=== PATIENT | male | born 1950 | race Caucasian/White ===

== ENCOUNTER → 2016-11-17 | Outpatient (CLI) | payer MEDICARE ==
[2015-04-06 12:00] VITALS: BP 118/79
[~2016-11-17] MED LIST: ACET500T68 PO; AMLO5TAB2 PO; ASPI-630 PO; ATOR20TA PO; AZAT50TA PO; BUDE10.2 IH; BUDE3CAP2 PO; DICY10CA3 PO; DIGO0.25 PO; DIGO250T PO; FLUO40CA2 PO; FOLI1TAB16 PO; FURO-68 PO; GLIP5TAB10 PO; LISI40TA PO; MESA500C PO; METF500T25 PO; METO50TA2 PO; POTA20TA4 PO; PROAIR HFA8.5 GM IH; SULF500T3 PO; WARF-78 PO; WARF3TAB54 PO; WARF5TAB7 PO
--- NOTE | 2016-11-17 13:32 | CARD ---
APPROVED REPORT EXAM: Two-dimensional and M-mode echocardiogram with Doppler and color Doppler. Other Information Quality : Average Rhythm : Pacemaker INDICATION Cardiomyopathy 2D DIMENSIONS RVDd3.7 (2.9-3.5cm)Left Atrium(2D)5.0 (1.6-4.0cm) IVSd1.3 (0.7-1.1cm)Aortic Root(2D)3.2 (2.0-3.7cm) LVDd5.1 (3.9-5.9cm)LVOT Diameter2.0 (1.8-2.4cm) PWd1.3 (0.7-1.1cm)LVDs3.7 (2.5-4.0cm) FS (%) 17.2 %SV66.5 ml LVEF(%)42.7 (>50%) Aortic Valve AoV Peak Christian.124.3cm/sAoV VTI21.0cm AO Peak GR.6.2mmHgLVOT Peak Christian.67.3cm/s LVOT VTI 14.20cmAO Mean GR.3mmHg ARTEM (VMAX)5.24el4YE P 1/2 Lpnv252kt Mitral Valve MV E Sywohrik09.1cm/sMV E Peak Gr.128mmHg MV DECEL [id number] A Velocity0.0cm/s MV UQA67pbX/A Ratio0.0 MVA (PHT)4.36cm2 TDI E/Lateral E'6.7E/Medial E'10.4 Pulmonary Valve PV Peak Efhbjzwh93.7cm/sPV Peak Grad.2mmHg RVOT VTI13.1cm Tricuspid Valve TR P. Nksqwllq517gu/sRAP JYFVXUMF5xoOt TR Peak Gr.67rqYiHOCC81fiZr LEFT VENTRICLE The left ventricle is normal size. There is borderline to mild concentric left ventricular hypertroph y. Left ventricle systolic function is mildly impaired. The Ejection Fraction is 40-45%. There is manny bal hypokinesis of the left ventricle. Unable to assess diastolic function. There is no ventricular s eptal defect visualized. RIGHT VENTRICLE The right ventricle is normal size. The right ventricular systolic function is normal. There is a pac emaker/ICD lead ssen in the RV/RA. ATRIA The left atrium is moderately dilated. The right atrium size is normal. The interatrial septum is int act with no evidence for an atrial septal defect or patent foramen ovale as noted on 2-D or Doppler i maging. AORTIC VALVE The aortic valve is mildly calcified. The aortic valve is trileaflet. Doppler and Color Flow revealed mild aortic regurgitation. There is no significant aortic valvular stenosis. MITRAL VALVE The mitral valve is normal in structure and function. There is no mitral valve stenosis. Doppler and Color Flow revealed mild to moderate mitral regurgitation. TRICUSPID VALVE The tricuspid valve is normal in structure and function. Doppler and Color Flow revealed mild tricusp id regurgitation. The PA pressure was estimated at 25 mmHg. There is no tricuspid valve stenosis. PULMONIC VALVE The pulmonic valve is not well visualized. Doppler and Color Flow revealed no pulmonic valvular regur gitation. There is no pulmonic valvular stenosis. GREAT VESSELS The aortic root is normal in size. The ascending aorta is normal in size. Normal pulmonary venous soledad w (Doppler). The IVC is normal in size and collapses >50% with inspiration. PERICARDIAL EFFUSION There is no evidence of significant pericardial effusion. Critical Notification Critical Value: No <Conclusion> Left ventricle systolic function is mildly impaired. The Ejection Fraction is 40-45%. The left atrium is moderately dilated. Mild aortic regurgitation. Mild to moderate mitral regurgitation. Mild tricuspid regurgitation. The PA pressure was estimated at 25 mmHg. There is no evidence of significant pericardial effusion.
== END | disposition home or self-care (01) ==
LOC: ECHO 09:33
PROVIDERS: ATTEND Internal Medicine Cardiovascular Disease
DX: I08.3 Combined rheumatic disorders of mitral, aortic and tricuspid valves (principal); Z95.0 Presence of cardiac pacemaker
CPT/HCPCS: 93306

== ENCOUNTER → 2017-03-08 | Day surgery (SDC) | payer MEDICARE ==
[~2017-03-08] MED LIST changes: +IV RINGERS,LACTATED 1000ML 1,000 ML IV ONE; +METF500T9 PO; -METO50TA2 PO; +METO50TA6 PO; +PROPOFOL 20 ML IV ONE
--- NOTE | 2017-03-08 09:26 | PDOC1 ---
HISTORY & PHYSICAL H&P Dilip Rahman [id number] 1950 02/22/2017 02:10 PM 04/11 [employer] [facility], [facility] OUR PATIENTS COME FIRST [address] [place] [id number] Ph. [phone] Patient: Dilip Rahman Date of : 1950 Date: 02/22/2017 2:10 PM Visit Type: Office Visit This 66 year old male presents for Ulcerative Colitis. History of Present Illness: 1. Ulcerative Colitis Patient has been here for evaluation. Has still urgency of bowel evacuation. No other change. Has routine blood work and is normal. Needs colonoscopy as part of surveillance for malignancy. INTAKE COMMENTS: Intake Comments: Nurse Note: the pt is here today for a follow-up for Ulcerative Colitis. 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 11/11/2015 Benign essential hypertension 09/05/2009 Hyperlipidemia 09/05/2009 Takotsubo cardiomyopathy 11/29/2011 Diabetes mellitus 11/29/2011 PAST MEDICAL/SURGICAL HISTORY (Detailed) Disease/disorder Onset Date Management Date Comments colonoscopy with biopsy 07/20/2012 Tonsillectomy Colonoscopy 03/2008 Ulcerative Colitis basal cell cancer exciesd left forehead Cardiac pacemaker 2004 Pacemaker with defibrillator 02/2012 Asthma Benign Hypertension Benign Hypertension Cancer, skin cardiomyopathy 2011 AICD 2011 Diabetes Hyperlipidemia Hyperlipidemia NEC/NOS Hyperlipidemia NEC/NOS hypertension Irregular Heart Rate myocardial infarction with cardiomyopathy. takutsubo syndrome 2011 cardiac cath - no significatn CAD 2011 obesity Other and unspecified hyperlipidemia Paroxysmal atrial fibrillation paroxysmal atrial fibrillation Ulcerative Colitis ulcerative colitis DIAGNOSTICS HISTORY: Test Ordered Interpretation Result completed COLONOSCOPY AND BIOPSY 06/26/2012 please review colonsocopy report and pathology report for results. 07/20/2012 Colonoscopy 06/10/2014 abnormal Imp: Mild erythema of the entire colon consistent with ulcerative colitis in good remission (bx), Diverticulosis, BX: Mild chronic inflammation with focal slight acute cryptits, mild chronic inflammation with focal slight acute cryptitis, mild chronic inflammation. Mild chronic inflammation with fical slight acute cryptitis, mild chronic inflammation. 06/24/2014 Test Ordered Ordering Comments Modifier COLONOSCOPY AND BIOPSY 06/26/2012 Colonoscopy 06/10/2014 Medications (Active): Started Medication Directions Instruction Stopped 10/26/2016 allopurinol 100 mg tablet take 1 tablet by ORAL route every day aspirin 81 mg tablet,delayed release take 1 tablet (81MG) by oral route every day 01/12/2017 atorvastatin 20 mg tablet TAKE 1 TABLET BY MOUTH DAILY 01/12/2017 azathioprine 50 mg tablet take 2 tablet by oral route every day 02/10/2017 Bentyl 10 mg capsule TAKE 1 CAPSULE BY MOUTH THREE TIMES DAILY 01/14/2017 Coumadin 1 mg tablet TAKE 2 TABLETS BY MOUTH DAILY or as directed due to fluctuating doses FLUCTUATING DOSES 12/16/2016 digoxin 250 mcg tablet TAKE 1 TABLET BY MOUTH DAILY 11/15/2016 FLUOXETINE 40MG CAP TAKE 1 CAPSULE BY MOUTH DAILY 09/15/2016 folic acid 1 mg tablet take 1 tablet by oral route every day 12/16/2016 furosemide 40 mg tablet TAKE 1 TABLET BY MOUTH TWICE DAILY 12/16/2016 glipizide 5 mg tablet TAKE 1 TABLET BY MOUTH TWICE DAILY WITH MEALS 12/16/2016 lisinopril 10 mg tablet take 1 tablet by oral route every day new dose as of 06/30/16 01/12/2017 metformin ER 500 mg tablet,extended release 24 hr TAKE 2 TABLETS BY MOUTH DAILY 12/16/2016 metoprolol tartrate 50 mg tablet TAKE 1 AND 1/2 TABLETS BY MOUTH TWICE DAILY. 04/16/2013 One Touch Ultra Test Strips test blood sugars ac TID as directed DX: 250.00 NPI# [id number] 02/10/2017 potassium chloride ER 20 mEq tablet,extended release(part/cryst) TAKE 1 TABLET BY MOUTH DAILY WITH FOOD ProAir HFA 90 mcg/actuation aerosol inhaler inhale 1 puff by inhalation route every 4 - 6 hours as needed 10/15/2016 sulfasalazine 500 mg tablet take 2 Tablet by ORAL route 3 times every day after meals Symbicort 160 mcg-4.5 mcg/actuation HFA aerosol inhaler inhale 2 puff by inhalation route 2 times every day in the morning and evening 11/15/2016 WARFARIN 5MG TAB TAKE DIRECTED. 02/28/2009 Xanax 0.5 mg Tab take 1 tablet daily PRN Allergies: Ingredient Reaction Medication Name Comment PENICILLINS Rash PENICILLINS REVIEW OF SYSTEMS System Neg/Pos Details Constitutional Negative Chills, fever, malaise and weight loss. ENMT Negative Sore throat. Eyes Negative Double vision. Respiratory Negative Dyspnea and wheezing. Cardio Negative Chest pain and irregular heartbeat/palpitations. GI Positive See HPI. GI Negative See HPI. Negative Dysuria and hematuria. Endocrine Negative Cold intolerance and heat intolerance. Psych Negative Anxiety. Integumentary Negative Hives and rash. MS Negative Joint pain. Shemar/Lymph Negative Easy bleeding and easy bruising. Allergic/Immuno Negative Food allergies. VITAL SIGNS Time BP mm/Hg Pulse /min Resp /min Temp F Ht ft Ht in Ht cm Wt lb Wt kg BMI kg/ m2 BSA m2 O2 Sat% 2:05 PM 132/80 94 5.0 7.00 170.18 266.00 120.656 41.66 95 Time Measured by 2:05 PM Mirlande Samano PHYSICAL EXAM: Exam Findings Details Constitutional Normal Well developed. Eyes Normal Conjunctiva - Right: Normal, Left: Normal. Sclera - Right: Normal, Left: Normal. Nasopharynx Normal Lips/teeth/gums - Normal. Neck Exam Normal Inspection - Normal. Thyroid gland - Normal. Respiratory Normal Inspection - Normal. Auscultation - Normal. Cardiovascular Normal Regular rate and rhythm. No murmurs, gallops, or rubs. Vascular Normal Pulses - Carotids: Normal, Femoral: Normal, Dorsalis pedis: Normal. Abdomen Normal Inspection - Normal. Anterior palpation - No guarding. No abdominal tenderness. No hepatic enlargement. No splenic enlargement. No hernia. No ascites. Skin Normal Inspection - Normal. Extremity Normal No edema. Psychiatric * Oriented to time, place, person and situation. Psychiatric Normal Appropriate mood and effect. Assessment/Plan # Detail Type Description 1. Assessment Ulcerative pancolitis without complication (K51.00). Patient Plan schedule colonoscopy at [facility] [place] Plan Orders Further diagnostic evaluations ordered today include(s) Colonoscopy to be performed today. He is to schedule a follow-up visit with Zev Skelton MD upon completion of work-up Electronically signed by: Zev Skelton MD 02/22/2017 03:10 PM Document generated by: Zev Skelton 02/22/2017 03:10 PM Manan Pate MD, Family Practice; Tyrone Tarango MD Internal Medicine; Art Pat MD, Internal Medicine; Karlee Skelton MD Internal Medicine; Zev Skelton MD, Gastroenterology; Uli Bentley MD, Rheumatology, S. Nilson Ojeda, Physical Medicine/Rehab JJose Marie-Danisha' MANAGER [employer] ------ 03/08/17 Patient seen and examined. No change in H&P. ZEV SKELTON MD Mar 08, 2017 09:26
[2017-03-08 10:37] VITALS: BP 135/92
--- NOTE | 2017-03-10 13:51 | PATHOLOGY ---
PATHOLOGY REPORT * * * * * * * * FINAL DIAGNOSIS: A. Colon biopsies, cecum: - Mild active chronic inflammation with focal acute cryptitis. B. Colon biopsies, ascending colon: - Mild chronic inflammation. C. Colon biopsies, transverse colon: - Mild chronic inflammation. D. Colon biopsies, descending colon: - Mild chronic inflammation. E. Colon biopsies, sigmoid colon: - Focal mild active chronic inflammation. F. Colorectal biopsies, rectum: - Focal mild active chronic inflammation with acute cryptitis. COMMENT: Sections of the cecal biopsy show mild active chronic inflammation with focal acute cryptitis. Sections of the sigmoid colon and rectal biopsies show focal mild active chronic inflammation with focal acute cryptitis. The remaining biopsies otherwise appear relatively quiescent. There is no evidence of an active chronic destructive colitis with crypt architectural distortion, crypt abscess, or basal plasmacytosis. There is no dysplasia or evidence of malignancy. (JPM:mgsri; 03/10/2017) REPORT ELECTRONICALLY SIGNED BY: Farshad Joaquin M.D. DATE/TIME: 03/10/2017 13:51 * * * * * * * * GROSS PATHOLOGY: A. Received in formalin labeled "Dilip Peirsol, cecum, BX," are 2 segments of lawler soft tissue measuring 0.6 x 0.2 x 0.2 cm in aggregate dimensions and ranging from 0.1 to 0.5 cm in maximum dimension. The specimen is submitted entirely in cassette A1. B. Received in formalin labeled "Dilip Peirsol, ascending colon BX," are 6 segments of lawler soft tissue measuring 1.5 x 1.1 x 0.3 cm in aggregate dimensions and ranging from 0.4 to 0.6 cm in maximum dimension. The specimen is submitted entirely in cassette B1. C. Received in formalin labeled "Dilip Peirsol, transverse colon BX," are 5 segments of lawler soft tissue measuring 1.5 x 0.6 x 0.3 cm in aggregate dimensions and ranging from 0.3 to 0.6 cm in maximum dimension. The specimen is submitted entirely in cassette C1. D. Received in formalin labeled "Dilip Peirsol, descending colon BX," are 7 segments of lawler soft tissue measuring 1.5 x 1.4 x 0.4 cm in aggregate dimensions and ranging from 0.3 to 0.6 cm in maximum dimension. The specimen is submitted entirely in cassette D1. E. Received in formalin labeled "Dilip Peirsol, sigmoid BX," are 5 segments of lawler soft tissue measuring 2.0 x 1.3 x 0.4 cm in aggregate dimensions and ranging from 0.2 to 0.5 cm in maximum dimension. The specimen is submitted entirely in cassette E1. F. Received in formalin labeled "Dilip Rahman rectum, BX," are 3 segments of lawler soft tissue measuring 1.4 x 1.0 x 0.3 cm in aggregate dimensions and ranging from 0.3 to 0.5 cm in maximum dimension. The specimen is submitted entirely in cassette F1. (TSD; 03/08/2017) INITIAL CPT CODE(S): A; 99755 B; 90888 C; 59213 D; 63976 E; 34727 F; 11180 Professional services [place] [address] Technical services performed by [facility] at [address] [place] [address]. SPECIMEN(S) RECEIVED: A.Cecum biopsy B.Ascending colon biopsy C.Transverse colon biopsy D.Descending colon biopsy E.Sigmoid biopsy F.Rectum biopsy CLINICAL HISTORY: History of ulcerative colitis PATIENT: DILIP RAHMAN /AGE: 5 1950 (Age: 66) PATIENT #: [id number] ALT CASE #: SPECIMEN COLLECTION DATE: 03/08/2017 SPECIMEN RECEIVED DATE: 03/08/2017 [facility] - [address] [place] [address] - PHONE: [phone] * * * END OF REPORT * * *
== END | disposition home or self-care (01) ==
LOC: SURG 09:11
PROVIDERS: ATTEND Internal Medicine Gastroenterology
DX: K51.20 Ulcerative (chronic) proctitis without complications (principal); K63.5 Polyp of colon; K63.89 Other specified diseases of intestine; E11.9 Type 2 diabetes mellitus without complications; I48.0 Paroxysmal atrial fibrillation; G47.33 Obstructive sleep apnea (adult) (pediatric); I10 Essential (primary) hypertension; E78.5 Hyperlipidemia, unspecified; J45.909 Unspecified asthma, uncomplicated; I42.9 Cardiomyopathy, unspecified; I25.2 Old myocardial infarction; E66.9 Obesity, unspecified; Z79.82 Long term (current) use of aspirin; Z79.01 Long term (current) use of anticoagulants; Z85.828 Personal history of other malignant neoplasm of skin; Z98.890 Other specified postprocedural states; Z88.0 Allergy status to penicillin
CPT/HCPCS: 45380; 82962; 88305; J2704

== ENCOUNTER → 2017-11-24 | Outpatient (CLI) | payer MEDICARE ==
[2017-03-08 10:37] VITALS: BP 135/92
[~2017-11-24] MED LIST changes: -IV RINGERS,LACTATED 1000ML 1,000 ML IV ONE; +LISI-130 PO; -LISI40TA PO; -PROPOFOL 20 ML IV ONE; +WARF-31 PO; -WARF5TAB7 PO
--- NOTE | 2017-11-24 11:35 | CARD ---
MR#: [id number] Date of Study: 11/24/2017 Ordering Physician: SHAMIR FERRERA, Referring Physician: SHAMIR FERRERA Tech: HANNAH Bedolla APPROVED REPORT EXAM: Two-dimensional and M-mode echocardiogram with Doppler and color Doppler. Other Information Quality : AverageHR: 68bpm Technically limited study due to body habitus. INDICATION Chronic systolic heart failure RISK FACTORS Hypertension Obesity Hyperlipidemia 2D DIMENSIONS RVDd3.8 (2.9-3.5cm)Left Atrium(2D)5.1 (1.6-4.0cm) IVSd1.4 (0.7-1.1cm)Aortic Root(2D)3.8 (2.0-3.7cm) LVDd5.0 (3.9-5.9cm)LVOT Diameter1.9 (1.8-2.4cm) PWd1.3 (0.7-1.1cm)IVSs2.2 (0.8-1.2cm) LVDs3.2 (2.5-4.0cm)FS (%) 36.9 % PWs1.7 (0.8-1.2cm)SV80.3 ml LVEF(%)66.5 (>50%) M-Mode DIMENSIONS Left Atrium(MM)7.02 (2.5-4.0cm)IVSd1.60 (0.7-1.1cm) Aortic Root3.73 (2.2-3.7cm)LVDd5.57 (4.0-5.6cm) PWd1.44 (0.7-1.1cm)IVSs1.65 cm FS (%) 32 %LVDs3.80 (2.0-3.8cm) PWs1.82 cmLVEF(%)59 (>50%) Aortic Valve AoV Peak Christian.129.9cm/sAoV VTI24.8cm AO Peak GR.6.8mmHgLVOT Peak Christian.87.2cm/s LVOT VTI 17.43cmAO Mean GR.4mmHg ARTEM (VMAX)1.76ws7XGQ (VTI)1.93cm2 AI P 1/2 Iboj5021mw Mitral Valve MV E Kkrvpycb36.2cm/sMV E Peak Gr.98mmHg MV DECEL PRLC808idHD MRO99pf MVA (PHT)4.12cm2 TDI E/Lateral E'7.4E/Medial E'9.6 Pulmonary Valve PV Peak Nkxsszfw75.6cm/sPV Peak Grad.2mmHg Tricuspid Valve TR P. Vyomufcm232sm/sTR Peak Gr.23mmHg LEFT VENTRICLE The left ventricle is normal size. There is mild concentric left ventricular hypertrophy. The left ve ntricular systolic function is normal. The ejection fraction is estimated at 50-55%. There is normal LV segmental wall motion. RIGHT VENTRICLE The right ventricle is normal size. The right ventricular systolic function is normal. There is a pac emaker lead in the right ventricle. ATRIA The left atrium is moderately dilated. The right atrium is mildly dilated. A pacemaker is seen in the right atrium consistent with history. The interatrial septum is intact with no evidence for an atria l septal defect or patent foramen ovale as noted on 2-D or Doppler imaging. AORTIC VALVE The aortic valve is mildly thickened. Doppler and Color Flow revealed mild aortic regurgitation. Ther e is no significant aortic valvular stenosis. There is no aortic valvular vegetation. MITRAL VALVE The mitral valve is thickened but opens well. There is no evidence of mitral valve prolapse. There is no mitral valve stenosis. Doppler and Color-flow revealed mild mitral regurgitation. TRICUSPID VALVE The tricuspid valve leaflets are thickened , but open well. Doppler and Color Flow revealed mild tric uspid regurgitation. There is no tricuspid valve prolapse or vegetation. There is no tricuspid valve stenosis. PULMONIC VALVE The pulmonic valve is not well visualized. Doppler and Color Flow revealed no pulmonic valvular regur gitation. There is no pulmonic valvular stenosis. GREAT VESSELS The aortic root is borderline normal size. The IVC was not visualized. PERICARDIAL EFFUSION There is no pleural effusion. There is no evidence of significant pericardial effusion. Critical Notification Critical Value: No <Conclusion> The left ventricular systolic function is normal. The ejection fraction is estimated at 50-55%. There is a pacemaker lead in the right atrium and right ventricle. The left atrium is moderately dilated. Mild aortic regurgitation. Mild mitral regurgitation. Mmild tricuspid regurgitation. There is no evidence of significant pericardial effusion. Signed by : Shamir Ferrera, Electronically Approved : 11/24/2017 11:34:27
== END | disposition home or self-care (01) ==
LOC: ECHO 09:43
PROVIDERS: ATTEND Internal Medicine Cardiovascular Disease
DX: I08.3 Combined rheumatic disorders of mitral, aortic and tricuspid valves (principal); I50.22 Chronic systolic (congestive) heart failure; I10 Essential (primary) hypertension; E78.5 Hyperlipidemia, unspecified; E66.9 Obesity, unspecified
CPT/HCPCS: 93306

== ENCOUNTER → 2018-03-28 | Day surgery (SDC) | payer MEDICARE ==
[~2018-03-28] VITALS: Ht 177.8 cm; Wt 117.5 kg
[~2018-03-28] MED LIST changes: +ALBU2.5V8 IH; +ALLO100T PO; +ALPR0.5T PO; -AMLO5TAB2 PO; +AMLO5TAB7 PO; +BACITRACIN TOPICAL OINT 14GM TUBE. TP ONE; +BUPIVAC MPF-EPI 0.5%-1:200000 30 ML VIAL. ONE; +DOCU-109 PO; +FURO40TA4 PO; +HYDR-3164 PO; +HYDROcodone/APAP 5/325MG 1 TAB TABLET PO ONE; +HYDROmorphone 2 MG/ML VIAL IV PRN; +IV RINGERS,LACTATED 1000ML 1,000 ML IV SCH; +LIDOCAINE 1% PF 2 ML VIAL. ID PRN; +LIDOCAINE 1% PF 30 ML VIAL. ONE; +LIDOCAINE 1%/EPI 1:100,000 20 ML VIAL. ONE; +LIDOCAINE 2% PF Vial for OR 5 ML VIAL. ONE; +METO-239 PO; +MIDAZOLAM HCL/PF 2 MG/2 ML VIAL. ONE; +MORPHINE SULFATE 2 MG/ML VIAL. IV PRN; +ONDANSETRON PF 4 MG/2 ML VIAL. IV PRN; -PROAIR HFA8.5 GM IH; +PROCHLORPERAZINE 10 MG/2 ML VIAL. IV PRN; +PROPOFOL 20 ML IV ONE; +fentaNYL PF VIAL 100 MCG/2 ML VIAL IV PRN; +fentaNYL PF VIAL 250 MCG/5 ML VIAL ONE
[2018-03-28 09:09] LABS: PROTHROMBIN TIME PATIENT 14.2 SEC (11.7-14.0)
--- NOTE | 2018-03-28 10:14 | PDOC ---
BRIEF OPERATIVE NOTE Date: Mar 28, 2018 Pre-Op Diagnosis subcutaneous mass, left posterior neck Post-Op Diagnosis same Procedure Performed excision Surgeon Darrius Anesthesia Type: General Blood Loss 10cc IV Fluid 300cc Specimens Obtained skin and subcutaneous tissue left posterior neck 4x2x1.5 cm Findings sebaceous cyst Complications none Operative Note # [id number] ALBERT MONTES MD Mar 28, 2018 10:14
--- NOTE | 2018-03-28 10:18 | DISCH ---
DISCHARGE INSTRUCTIONS Condition on Discharge Condition on Discharge: Stable Activity After Discharge Activity Instructions for Disc: Activity as tolerated, Avoid exertion Lifting Instructions after Dis: No heavy lifting Driving Instructions after Dis: Do not drive today Diet after Discharge Diet after Discharge: Cardiac, Diabetic No Calorie Level Wound Incision Care Wound/Incision Care: Ice to area for comfort Other wound/incision instructi: may shower Contacting the DRJose after DC Call your doctor for: If your condition worsens Follow-Up Follow up with: Darrius 04/07 ALBERT MONTES MD Mar 28, 2018 10:18
--- NOTE | 2018-03-28 10:21 | OP ---
DATE OF SURGERY: 03/28/2018 PREOPERATIVE DIAGNOSIS: Subcutaneous mass, left posterior neck. POSTOPERATIVE DIAGNOSIS: Subcutaneous mass, left posterior neck. PROCEDURE: Excision of subcutaneous mass, left posterior neck. SURGEON: Albert Montes MD ANESTHESIA: General. ESTIMATED BLOOD LOSS: 10 mL. INTRAVENOUS FLUIDS: 300 mL. SPECIMEN: Skin and subcutaneous tissue, left posterior neck, a 4 x 2 x 1.5 cm. DESCRIPTION OF PROCEDURE: The patient brought to the operating suite, given a general LMA and placed in the right lateral decubitus position. The posterior skin lesion, which had been marked preoperatively with the patient's assistance, was infiltrated with local anesthetic, incised and the skin and underlying process removed en bloc. Hemostasis with cautery when present. The wound was closed with interrupted sutures of 4-0 and 5-0 nylon. Sterile dressing applied. The patient was awakened from his anesthetic and taken to the recovery room in satisfactory condition. ALBERT MONTES MD DR: KAYLYN/susana JOB#: [id number] / [id number]
[2018-03-28 11:15] VITALS: BP 105/60
--- NOTE | 2018-03-30 16:09 | PATHOLOGY ---
[facility] Accession Number: [id number] . 01 Material submitted: . SKIN AND SUBCUTANEOUS TISSUE LEFT POSTERIOR NECK . 01 Clinical history: . Subcutaneous cyst . 02 Diagnosis: Skin and subcutaneous tissue, "left posterior neck", excision: - Ruptured epidermal inclusion cyst with associated acute and chronic inflammation and foreign body giant cells. (SKM:[facility] 03/30/2018) QTP/03/30/2018 . 02 Electronically signed: . Freddy Reynaga MD, Pathologist NPI- [id number] . 01 Gross description: . The specimen is received in formalin, labeled "Dilip Rahman, skin and subcutaneous tissue left posterior neck". Received is an ellipse of pale lawler, grossly unremarkable skin with attached underlying soft tissue measuring 2.8 x 2.1 x 1.7 cm in greatest dimensions. The surgical margin is inked. Sectioning reveals a unilocular cystic structure measuring 0.5 cm filled with white-lawler friable material. The entire cystic structure is submitted in cassette A1. (CAA; 03/29/2018) QAC/QAC . 02 Pathologist provided ICD-10: L72.0 . 02 CPT . 709922 Specimen Comment: A courtesy copy of this report has been sent to Specimen Comment: [phone], . Specimen Comment: Report sent to / DR PIERCE Specimen Comment: A duplicate report has been generated due to demographic updates. Performed at: 01 [facility] [address], [place] [id number] MD Anibal Ballard MD Phone: [phone] Performed at: 02 [facility] [address] [place], [place] [id number] MD Farshad Joaquin MD Phone: [phone]
== END ==
LOC: SURG 07:48
PROVIDERS: ATTEND Surgery
DX: L72.0 Epidermal cyst (principal)
CPT/HCPCS: 11426; 88304; A7015; J1956; J2001; J2704; J3010; J3490; 36415; 82962; 85610; 85730; J2250

== ENCOUNTER 2018-04-28 06:37 | Outpatient (CLI) | payer MEDICARE ==
[2018-04-28] VITALS (7 sets, daily range): BP systolic 94–108; BP diastolic 54–65
[~2018-04-28] VITALS: Ht 177.8 cm; Wt 108.9 kg
[~2018-04-28 06:37] MED LIST changes: -BACITRACIN TOPICAL OINT 14GM TUBE. TP ONE; -BUPIVAC MPF-EPI 0.5%-1:200000 30 ML VIAL. ONE; -HYDROcodone/APAP 5/325MG 1 TAB TABLET PO ONE; -HYDROmorphone 2 MG/ML VIAL IV PRN; -IV RINGERS,LACTATED 1000ML 1,000 ML IV SCH; -LIDOCAINE 1% PF 2 ML VIAL. ID PRN; -LIDOCAINE 1% PF 30 ML VIAL. ONE; -LIDOCAINE 1%/EPI 1:100,000 20 ML VIAL. ONE; -LIDOCAINE 2% PF Vial for OR 5 ML VIAL. ONE; -MIDAZOLAM HCL/PF 2 MG/2 ML VIAL. ONE; -MORPHINE SULFATE 2 MG/ML VIAL. IV PRN; -ONDANSETRON PF 4 MG/2 ML VIAL. IV PRN; -PROCHLORPERAZINE 10 MG/2 ML VIAL. IV PRN; -PROPOFOL 20 ML IV ONE; +Pantoprazole PO; -fentaNYL PF VIAL 100 MCG/2 ML VIAL IV PRN; -fentaNYL PF VIAL 250 MCG/5 ML VIAL ONE
[2018-04-28] MEDS ORDERED: LISI10TA2 PO (06:59)
[2018-04-28 07:02] LABS: HEMATOCRIT 41.8 % (39.0-53.0); HEMOGLOBIN 14.9 g/dL (13.0-17.5); RED BLOOD COUNT 3.88 x10^6/uL (4.30-5.70); WHITE BLOOD COUNT 4.8 x10^3/uL (4.0-11.0)
[2018-04-28 07:11] LABS: CALCIUM 9.4 mg/dL (8.5-10.1); CREATININE 1.1 mg/dL (0.7-1.3); GFR 66.4; POTASSIUM 3.5 mmol/L (3.5-5.1)
[2018-04-28 07:13] LABS: PROTHROMBIN TIME PATIENT 17.1 SEC (11.7-14.0)
[2018-04-28] MEDS ORDERED: BACITRACIN 50,000 UNIT in IV NORMAL SALINE 250ML 250 ML IRR ONE (08:00)
[2018-04-28] MEDS ORDERED: VANCOMYCIN 1GM IVPB FOR OMNI 250 ML IV ONE (08:00)
[2018-04-28] MEDS ORDERED: MIDAZOLAM HCL/PF 5 MG/5 ML VIAL. ONE (08:07)
[2018-04-28] MEDS ORDERED: fentaNYL PF VIAL 250 MCG/5 ML VIAL ONE (08:07)
[2018-04-28] MEDS ORDERED: LIDOCAINE 2%/EPI 1:100,000 20 ML VIAL. ONE (08:11)
[2018-04-28] MEDS ORDERED: fentaNYL PF VIAL 250 MCG/5 ML VIAL IV ONE (08:30)
[2018-04-28] MEDS ORDERED: MIDAZOLAM HCL/PF 5 MG/5 ML VIAL. IV ONE (08:30)
[2018-04-28] MEDS ORDERED: LIDOCAINE 2%/EPI 1:100,000 20 ML VIAL. IJ ONE (08:30)
--- NOTE | 2018-04-28 09:33 | PDOC ---
MODERATE SEDATION ASSESSMENT RISKS/ALTERNATIVES Risks/Alternatives Risks and alternatives of this type of sedation and procedure discussed with: RISK/ALTERNATIVES: Patient H & P ON CHART H & P H & P on chart and reviewed for co-morbid conditions and appropriate labs. H&P ON CHART: Yes STATUS PREG STATUS ASSESSED: N/A MEDS/ALLERGIES REVIEWED Meds/Allergies Reviewed Medications and Allergies including time and route of recently administered narcotics and sedatives. MEDS/ALLERGIES REVIEWED: Yes ASA RATING ASA RATING: III AIRWAY ASSESSMENT Airway Assessment Airway patency, oral function limitations, presence of caps, crowns, dentures, partials, and ability to extend neck assessed. AIRWAY ASSESSMENT: Yes MALLAMPATI SCORE MALLAMPATI SCORE: II PRE-SEDATION ASSESSMENT PRE-SEDATION ASSESSMENT: Yes SHAMIR RODRÍGUEZ MD Apr 28, 2018 09:33
[2018-04-28] MEDS ORDERED: NO ANTICOAGULANT THERAPY. MC PRN (09:45)
--- NOTE | 2018-04-28 10:05 | CARD ---
MR#: [id number] Date of Study: 04/28/2018 Ordering Physician: SHAMIR FERRERA, Referring Physician: SHAMIR FERRERA, Tech: APPROVED REPORT EXAM Successful [employer] biventricular ICD/SOLAR INSTALLATION FOREMAN-D generator change INDICATIONS Nonischemic cardiomyopathy s/p biventricular ICD/SOLAR INSTALLATION FOREMAN-D implantation in the past presenting with batte ry depletion Sedation Time: 34 Minutes IMPLANTED DEVICES After explaining the risks, benefits and alternative options, informed consent was obtained from cassidy ent. Patient was brought to the cardiac Battery Checker and his left chest and shoulder were prepped and alec ped in the usual fashion. 30 mL of 2% lidocaine was infiltrated into the skin and subcutaneous tissue s for local anesthesia. An incision was made over the previous scar and using blunt dissection and ca utery the pocket was opened, capsule exposed and opened and the previously placed generator removed f rom the pocket. The leads were detached from the generator and reattached to a [employer] biventricula r ICD/SOLAR INSTALLATION FOREMAN-D generator model Iperia 7 HF-T DF4 ProMRI, serial #[id number]. This was placed in the pocket was subsequently closed in 3 layers. The right ventricular lead showed a sensing amplitude of 4.8 mV , impedance of 521 ohms and a threshold of 0.7 V. The left ventricular lead showed a sensing amplitud e of 24.4 mV, impedance of 535 ohms and a threshold of 0.9 V. Patient did not have an atrial lead pro bably secondary to his permanent atrial fibrillation. The previously placed right ventricular pacing lead was capped in the past for this was upgraded to biventricular ICD. Patient tolerated the procedu re well. Hemostasis was achieved. There were no immediate complications. CONCLUSION Successful [employer]ik biventricular ICD/SOLAR INSTALLATION FOREMAN-D generator change for battery depletion Signed by : Shamir Ferrera, Electronically Approved : 04/28/2018 10:03:09
--- NOTE | 2018-04-28 10:47 | NUR ---
discharge instructions reviewed with patient and family. Pt tolerated PO and ambulated without difficulty. Pt discharged to home
== END 2018-04-28 10:49 | disposition home or self-care (01) ==
LOC: CCL 06:37
PROVIDERS: ATTEND Internal Medicine Cardiovascular Disease
DX: Z45.09 Encounter for adjustment and management of other cardiac device (principal); I10 Essential (primary) hypertension; E11.9 Type 2 diabetes mellitus without complications; E78.5 Hyperlipidemia, unspecified; I25.5 Ischemic cardiomyopathy; Z98.890 Other specified postprocedural states; Z88.0 Allergy status to penicillin; Z79.84 Long term (current) use of oral hypoglycemic drugs
CPT/HCPCS: 33263; 36415; 80048; 85027; 85610; C1882; J2250; J3010; J3370; J3490; J7050; 33264; 99152; 99153; J7030

== ENCOUNTER → 2019-01-03 | Outpatient (CLI) | payer MEDICARE ==
[2018-04-28 10:27] VITALS: BP 95/54
[~2019-01-03] MED LIST changes: +AMLO5TAB10 PO; -AMLO5TAB7 PO; +LISI10TA2 PO; +METF500T11 PO; -METF500T9 PO
--- NOTE | 2019-01-05 13:53 | CARD ---
MR#: [id number] Date of Study: 01/03/2019 Ordering Physician: SHAMIR RODRÍGUEZ, Referring Physician: SHAMIR RODRÍGUEZ Tech: Shayna Jaems RDCS APPROVED REPORT EXAM: Two-dimensional and M-mode echocardiogram with Doppler and color Doppler. Other Information Quality : AverageHR: 97bpm Rhythm : NSR INDICATION Congestive Heart Failure 2D DIMENSIONS RVDd3.7 (2.9-3.5cm)Left Atrium(2D)5.7 (1.6-4.0cm) IVSd1.2 (0.7-1.1cm)Aortic Root(2D)3.7 (2.0-3.7cm) LVDd5.7 (3.9-5.9cm)LVOT Diameter2.1 (1.8-2.4cm) PWd1.2 (0.7-1.1cm)LVDs4.5 (2.5-4.0cm) FS (%) 22.0 %SV71.1 ml LVEF(%)43.8 (>50%) M-Mode DIMENSIONS Left Atrium(MM)6.25 (2.5-4.0cm)IVSd1.35 (0.7-1.1cm) Aortic Root4.03 (2.2-3.7cm)PWd1.35 (0.7-1.1cm) IVSs4.45 cm Aortic Valve AoV Peak Christian.117.5cm/sAoV VTI23.4cm AO Peak GR.5.5mmHgLVOT Peak Christian.90.3cm/s AO Mean GR.3mmHgAVA (VMAX)2.78cm2 ARTEM (VTI)2.07si7FK P 1/2 Jdpg379uh Mitral Valve MV E Qgxfnlwx74.9cm/sMV E Peak Gr.99mmHg MV DECEL VIFZ089mrHK A Yncmnbdh40.6cm/s MV E Mean Gr.2mmHgE/A Ratio2.4 Pulmonary Valve PV Peak Mkyokelz54.8cm/s Tricuspid Valve TR P. Ghhdtmic905md/sRAP JRZENYBH5orBf TR Peak Gr.67wlWcUEMK71upWc LEFT VENTRICLE The Left Ventricle is borderline dilated. There is mild concentric left ventricular hypertrophy. The systolic function is mildly impaired. The Ejection Fraction is 40-45%. There is global hypokinesis of the left ventricle with predominance in the anterior wall. Transmitral Doppler flow pattern is Grade II-pseudonormal filling dynamics. RIGHT VENTRICLE The right ventricle is mildly dilated. There is normal right ventricular wall thickness. Systolic fun ction is mildly reduced. ICD lead noted in RV/RA. ATRIA The left atrium is moderately dilated. The right atrium is moderately dilated. The interatrial septum is intact with no evidence for an atrial septal defect or patent foramen ovale as noted on 2-D or Do ppler imaging. AORTIC VALVE The aortic valve is normal in structure and function. The aortic valve is trileaflet. Doppler and Col or Flow revealed moderate aortic regurgitation. There is no significant aortic valvular stenosis. MITRAL VALVE The mitral valve is thickened but opens well. There is no evidence of mitral valve prolapse. There is no mitral valve stenosis. Doppler and Color-flow revealed mild to moderate mitral regurgitation. TRICUSPID VALVE The tricuspid valve is normal in structure and function. Doppler and Color Flow revealed moderate tri cuspid regurgitation. The PA pressure was estimated at 37 mmHg. There is no tricuspid valve prolapse or vegetation. There is no tricuspid valve stenosis. PULMONIC VALVE The pulmonary valve is normal in structure and function. Doppler and Color Flow revealed trace pulmon ic valvular regurgitation. There is no pulmonic valvular stenosis. GREAT VESSELS The aortic root is mildly enlarged. The ascending aorta is Mildly dilated at 3.7 cm The IVC is normal in size and collapses >50% with inspiration. PERICARDIAL EFFUSION There is no evidence of significant pericardial effusion. Critical Notification Critical Value: No <Conclusion> The systolic function is mildly impaired. The Ejection Fraction is 40-45%. There is global hypokinesis of the left ventricle with predominance in the anterior wall. ICD lead noted in RV/RA. Doppler and Color Flow revealed moderate aortic regurgitation. Doppler and Color-flow revealed mild to moderate mitral regurgitation. Doppler and Color Flow revealed moderate tricuspid regurgitation. The PA pressure was estimated at 37 mmHg. The ascending aorta is Mildly dilated at 3.7 cm Signed by : Giovanni Portillo, Electronically Approved : 01/03/2019 10:22:58
== END | disposition home or self-care (01) ==
LOC: ECHO 08:43
PROVIDERS: ATTEND Internal Medicine Cardiovascular Disease
DX: I08.3 Combined rheumatic disorders of mitral, aortic and tricuspid valves (principal); I11.0 Hypertensive heart disease with heart failure; I50.22 Chronic systolic (congestive) heart failure; I77.89 Other specified disorders of arteries and arterioles
CPT/HCPCS: 93306

== ENCOUNTER → 2019-06-04 | Day surgery (SDC) | payer MEDICARE ==
[~2019-06-04] MED LIST changes: -DIGO250T PO; +DIGO250T3 PO; +IV RINGERS,LACTATED 1000ML 1,000 ML IV ONE; +LIDOCAINE 2% PF 5 ML VIAL. ONE; +PROPOFOL 40 ML IV ONE
--- NOTE | 2019-06-04 14:09 | PDOC4 ---
PROCEDURE Procedure Colonoscopy with biopsies Indication: DANYA, dysplasia surveillance. Last colonoscopy 2016. Meds: per anesthesia Findings: RONEY normal. --'Scope advanced to cecum. Some subtle scarring in descending and sigmoid, otherwise normal mucosa. No polyps, tics, masses, etc. Random biopsies from cecum/ascending, transverse, descending, sigmoid and rectum. Maritza. well. 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 REC: Continue meds, diet as before. Await biopsies F/u with me in 2 weeks. Repeat exam in 2 years. JOSE NIEVES MD Jun 04, 2019 14:09
[2019-06-04 14:22] VITALS: BP 101/57
--- NOTE | 2019-06-06 15:07 | PATHOLOGY ---
[facility] Accession Number: [id number] . 01 Material submitted: . PART A: cecum - CECUM/ASCENDING BIOPSIES. Modifiers: ascending PART B: colon - TRANSVERSE COLON BIOPSY. Modifiers: transverse PART C: colon - DESCENDING COLON BIOPSY. Modifiers: descending PART D: colon - SIGMOID COLON BIOPSY. Modifiers: sigmoid PART E: rectum - RECTAL BIOPSIES . 01 Clinical history: . UC . 02 Diagnosis: A. Colonic mucosa, cecum and ascending colon biopsies: - Quiescent colitis. - Single mucosal segment showing focal dysplasia/diminutive tubular adenoma. . B. Colonic mucosa, transverse colon biopsies: - Quiescent colitis. . C. Colonic mucosa, descending colon biopsies: - Quiescent colitis. . D. Colonic mucosa, sigmoid colon biopsies: - Quiescent colitis. . E. Colorectal mucosa, rectal biopsies: - Quiescent colitis. . (JPM:davonte; 06/06/2019) [facility] [place] 06/06/2019 0849 Local . 02 Comment: Sections of the cecum/ascending colon, transverse colon, descending colon, sigmoid colon, and rectal biopsies for the most part appear similar and show segments of histologically normal colonic and rectal mucosa with no evidence of active chronic destructive colitis or dysplasia. There is a single mucosal biopsy segment within the cecum/ascending colon biopsy which shows a small focus of dysplasia/diminutive tubular adenoma. There is no high grade dysplasia or evidence of malignancy. (JPM:davonte; 06/06/2019) . 02 Electronically signed: . Farshad Joaquin MD, Pathologist NPI- [id number] . 01 Gross description: . A. The specimen is received in formalin, labeled "Peirsol, Dilip, cecum and ascending BX" and consists of multiple fragments of lawler tissue measuring 1.5 x 0.6 x 0.3 cm in aggregate which are entirely submitted in A1. . B. The specimen is received in formalin, labeled " Peirsol, Dilip, transverse colon biopsies" and consists of multiple fragments of lawler tissue measuring 1.1 x 0.8 x 0.3 cm in aggregate which are entirely submitted in B1. . C. The specimen is received in formalin, labeled " Peirsol, Dilip, descending colon BX" and consists of multiple fragments of pink-lawler tissue measuring 1.1 x 0.6 x 0.3 cm in aggregate which are entirely submitted in C1. . D. The specimen is received in formalin, labeled " Peirsol, Dilip, sigmoid biopsies" and consists of multiple fragments of pink-lawler tissue measuring 1.2 x 0.9 x 0.3 cm in aggregate which are entirely submitted in D1. . E. The specimen is received in formalin, labeled " Peirsol, Dilip, rectal biopsies" and consists of a few fragments of pink-lawler tissue measuring 1.1 x 0.4 x 0.2 cm in aggregate which are entirely submitted in E1. (SDY; 06/05/2019) SYU/SYU 06/05/2019 1159 Local . 02 Pathologist provided ICD-10: K52.9, K51.90 . 02 CPT . 040020, 728122, 362202, 636483, [id number] Specimen Comment: A courtesy copy of this report has been sent to [phone], [phone] Specimen Comment: [id number] Specimen Comment: Report sent to / DR PIERCE Performed at: 01 [facility] [address], [place], [place] [id number] MD Anibal Ballard MD Phone: [phone] Performed at: 02 [facility] [address] [place], [place] [id number] MD Farshad Joaquin MD Phone: [phone]
== END ==
LOC: ENDOS 12:33
PROVIDERS: ATTEND Internal Medicine Gastroenterology
DX: Z12.11 Encounter for screening for malignant neoplasm of colon (principal); K52.89 Other specified noninfective gastroenteritis and colitis; I11.0 Hypertensive heart disease with heart failure; I50.9 Heart failure, unspecified; E11.9 Type 2 diabetes mellitus without complications; E78.00 Pure hypercholesterolemia, unspecified; I25.2 Old myocardial infarction; F15.90 Other stimulant use, unspecified, uncomplicated; Z88.0 Allergy status to penicillin; Z87.39 Personal history of other diseases of the musculoskeletal system and connective tissue; Z86.010 Personal history of colon polyps; Z85.828 Personal history of other malignant neoplasm of skin; Z79.84 Long term (current) use of oral hypoglycemic drugs; Z95.0 Presence of cardiac pacemaker; Z98.52 Vasectomy status
CPT/HCPCS: 45380; 82962; 88305; J2001; J2704

== ENCOUNTER → 2020-02-05 | Outpatient (CLI) | payer MEDICARE ==
[2019-06-04 14:22] VITALS: BP 101/57
[~2020-02-05] MED LIST changes: +AMLO-186 PO; -AMLO5TAB10 PO; +APIX5TAB PO; -IV RINGERS,LACTATED 1000ML 1,000 ML IV ONE; -LIDOCAINE 2% PF 5 ML VIAL. ONE; +METF-658 PO; -METF500T11 PO; -PROPOFOL 40 ML IV ONE; -WARF-78 PO; +WARF5TAB2 PO
--- NOTE | 2020-02-05 15:33 | CARD ---
MR#: [id number] Date of Study: 02/05/2020 Ordering Physician: SHAMIR FERRERA, Referring Physician: SHAMIR FERRERA, Tech: Brigitte Delgado APPROVED REPORT EXAM: Two-dimensional and M-mode echocardiogram with Doppler and color Doppler. Other Information Quality : Average INDICATION Congestive Heart Failure Surgery/Intervention Pacemaker: RISK FACTORS Hypertension Hyperlipidemia Diabetes 2D DIMENSIONS RVDd3.6 (2.9-3.5cm)Left Atrium(2D)4.6 (1.6-4.0cm) IVSd1.2 (0.7-1.1cm)Aortic Root(2D)4.1 (2.0-3.7cm) LVDd6.1 (3.9-5.9cm)LVOT Diameter2.8 (1.8-2.4cm) PWd1.3 (0.7-1.1cm)LVDs3.7 (2.5-4.0cm) FS (%) 38.7 %SV126.2 ml LVEF(%)68.1 (>50%) Aortic Valve AoV Peak Christian.142.6cm/sAoV VTI25.8cm AO Peak GR.8.1mmHgLVOT Peak Christian.104.6cm/s LVOT VTI 19.83cmAO Mean GR.5mmHg ARTEM (VMAX)3.21rq6ZFZ (VTI)4.79cm2 AI P 1/2 Azxp689hj Mitral Valve MV E Peak Gr.117mmHgMV E Mean Gr.2mmHg Pulmonary Valve PV Peak Isxhzfvj82.9cm/sPV Peak Grad.3mmHg Tricuspid Valve TR P. Qqtzmiet732rq/sTR Peak Gr.30mmHg LEFT VENTRICLE The Left Ventricle is mildly dilated. There is mild to moderate concentric left ventricular hypertrop hy. The left ventricular systolic function is mildly diminished. The Ejection Fraction is 45-50%. Sep caitie motion consistent with pacemaker activation. RIGHT VENTRICLE The right ventricle is borderline dilated. There is normal right ventricular wall thickness. The righ t ventricular systolic function is normal. There is a pacemaker lead in the right ventricle. ATRIA The left atrium is moderately dilated. There is a catheter/pacemaker lead seen in the right atrium. T he right atrium is mildly dilated. The interatrial septum is intact with no evidence for an atrial se ptal defect or patent foramen ovale as noted on 2-D or Doppler imaging. AORTIC VALVE The aortic valve is normal in structure and function. Doppler and Color Flow revealed mild aortic reg urgitation. There is no significant aortic valvular stenosis. Calculated aortic valve area is 2.93 cm 2 with maximum pressure gradient of 9 mmHg and mean pressure gradient of 5 mmHg. MITRAL VALVE The mitral valve is normal in structure and function. There is no evidence of mitral valve prolapse. There is no mitral valve stenosis. Doppler and Color-flow revealed mild mitral regurgitation. TRICUSPID VALVE The tricuspid valve is normal in structure and function. Doppler and Color Flow revealed mild tricusp id regurgitation with an estimated PAP of 28 mmHg. There is no tricuspid valve stenosis. PULMONIC VALVE The pulmonic valve is not well visualized. Doppler and Color Flow revealed trace pulmonic valvular re gurgitation. GREAT VESSELS The aortic root is mildly enlarged measuring 3.99 cm. The ascending aorta is normal in size. The IVC was not visualized. PERICARDIAL EFFUSION There is no evidence of significant pericardial effusion. Critical Notification Critical Value: No <Conclusion> The left ventricular systolic function is mildly diminished. The Ejection Fraction is 45-50%. Pacer lead noted RA/RV. Mild aortic regurgitation. Mild mitral regurgitation. Mild tricuspid regurgitation with an estimated PAP of 28 mmHg. There is no evidence of significant pericardial effusion. Signed by : Shamir Ferrera, Electronically Approved : 02/05/2020 15:32:30
== END ==
LOC: ECHO 09:21
PROVIDERS: ATTEND Internal Medicine Cardiovascular Disease
DX: I08.3 Combined rheumatic disorders of mitral, aortic and tricuspid valves (principal); I50.22 Chronic systolic (congestive) heart failure
CPT/HCPCS: 93306

== ENCOUNTER → 2021-02-11 | Outpatient (CLI) | payer MEDICARE ==
[2019-06-04 14:22] VITALS: BP 101/57
[~2021-02-11] MED LIST changes: +LISI10TA16 PO; -LISI10TA2 PO; +POTA-121 PO; -POTA20TA4 PO
--- NOTE | 2021-02-11 16:47 | CARD ---
MR#: [id number] Date of Study: 02/11/2021 Ordering Physician: SHAMIR RODRÍGUEZ, Referring Physician: SHAMIR RODRÍGUEZ Tech: Chayito Morales MARKO APPROVED REPORT EXAM: Two-dimensional and M-mode echocardiogram with Doppler and color Doppler. Other Information Quality : AverageHR: 83bpm Rhythm : Atrial Fibrillation INDICATION Atrial Fibrillation Surgery/Intervention ICD/Pacemaker: RISK FACTORS Hypertension Hyperlipidemia Diabetes 2D DIMENSIONS RVDd4.4 (2.9-3.5cm)Left Atrium(2D)6.4 (1.6-4.0cm) IVSd1.4 (0.7-1.1cm)Aortic Root(2D)4.2 (2.0-3.7cm) LVDd5.6 (3.9-5.9cm)LVOT Diameter2.6 (1.8-2.4cm) PWd1.4 (0.7-1.1cm)LVDs4.1 (2.5-4.0cm) FS (%) 26.2 %SV77.1 ml LVEF(%)50.7 (>50%) Aortic Valve AoV Peak Christian.136.0cm/sAoV VTI29.9cm AO Peak GR.7.4mmHgLVOT Peak Christian.89.6cm/s AO Mean GR.5mmHgAVA (VMAX)3.47cm2 AI P 1/2 Hvoz989je Mitral Valve MV E Yxibtcoa771.1cm/s Pulmonary Valve PV Peak Mpyqofcm45.8cm/s Tricuspid Valve TR P. Flsmaral727ge/sTR Peak Gr.40mmHg LEFT VENTRICLE The Left Ventricle is borderline dilated. There is mild to moderate concentric left ventricular hyper trophy. Left ventricle systolic function is moderately impaired. The ejection fraction is estimated a t 35%. There is global hypokinesis of the left ventricle. RIGHT VENTRICLE The right ventricle is normal size. There is normal right ventricular wall thickness. The right ventr icular systolic function is normal. ATRIA The left atrium is moderately dilated. The right atrium is moderately dilated. The interatrial septum is intact with no evidence for an atrial septal defect or patent foramen ovale as noted on 2-D or Do ppler imaging. AORTIC VALVE The aortic valve is normal in structure and function. Doppler and Color Flow revealed mild aortic reg urgitation. There is no significant aortic valvular stenosis. MITRAL VALVE The mitral valve is normal in structure and function. There is no evidence of mitral valve prolapse. There is no mitral valve stenosis. Doppler and Color-flow revealed moderate mitral regurgitation. TRICUSPID VALVE The tricuspid valve is normal in structure and function. Doppler and Color Flow revealed mild tricusp id regurgitation. Estimated PAP 55 mmHg. There is no tricuspid valve stenosis. PULMONIC VALVE The pulmonary valve is normal in structure and function. Doppler and Color Flow revealed trace pulmon ic valvular regurgitation. GREAT VESSELS The aortic root is moderately enlarged. The ascending aorta is Moderately dilated. The IVC is dilated and collapses <50% with inspiration. PERICARDIAL EFFUSION There is no evidence of significant pericardial effusion. Critical Notification Critical Value: No <Conclusion> Left ventricle systolic function is moderately impaired. The ejection fraction is estimated at 35%. Pacer/ICD lead noted RA/RV. Mild aortic regurgitation. Moderate mitral regurgitation. Mild tricuspid regurgitation. Estimated PAP 55 mmHg. There is no evidence of significant pericardial effusion. Signed by : Shamir Rodríguez, Electronically Approved : 02/11/2021 16:47:07
== END ==
LOC: ECHO 10:30
PROVIDERS: ATTEND Internal Medicine Cardiovascular Disease
DX: I08.3 Combined rheumatic disorders of mitral, aortic and tricuspid valves (principal); I50.22 Chronic systolic (congestive) heart failure
CPT/HCPCS: 93306